=== PATIENT | male | born 1980 | race Two or more races ===

== ENCOUNTER 2020-05-08 16:12 | Inpatient (IN) | payer OTHER ==
[2020-05-08] MEDS ORDERED: OLANZapine IM 10 MG VIAL. IM PRN (17:45)
[2020-05-08 17:46] VITALS: BP 132/78
[2020-05-08] MEDS ORDERED: levETIRAcetam 500 MG TABLET PO SCH (18:00)
[2020-05-08 18:32] LABS: BASO # 0.1 x10^3/uL (0.0-0.2); BASO % 1 % (0-3); EOS % 0 % (0-3); HEMATOCRIT 36.4 % (39.0-53.0); HEMOGLOBIN 12.2 g/dL (13.0-17.5); LYMPH # 1.2 x10^3/uL (1.0-4.8); LYMPH % 10 % (24-48); MEAN CORPUSCULAR HEMOGLOBIN 31 pg (25-35); MEAN CORPUSCULAR HGB CONC 33 g/dL (31-37); MEAN CORPUSCULAR VOLUME 92 fL (79-100); MONO % 9 % (0-9); NEUT # 9.2 x10^3/uL (1.8-7.7); NEUT % 80 % (31-73); PLATELET COUNT 164 x10^3/uL (140-400); RED BLOOD COUNT 3.97 x10^6/uL (4.30-5.70); RED CELL DISTRIBUTION WIDTH 13.5 % (11.5-14.5); WHITE BLOOD COUNT 11.5 x10^3/uL (4.0-11.0)
[2020-05-08 19:00] VITALS: BP 105/55
[2020-05-08 19:05] LABS: CALCIUM 7.5 mg/dL (8.5-10.1); CREATININE 1.3 mg/dL (0.7-1.3); GFR 61.1; POTASSIUM 3.4 mmol/L (3.5-5.1)
--- NOTE | 2020-05-08 20:00 | NUR ---
patient sedated, waiting to give Keppra, as not encourage agitation.
--- NOTE | 2020-05-08 20:18 | NUR ---
THis RN gave report to Ms Meghan Dozier at [facility].
--- NOTE | 2020-05-08 20:31 | NUR ---
Pt became verbally, physically aggressive toward staff members. Pt confused alert only to himself, and he knew he was in a hospital, knew intermittently. Pt unsteady on his own feet. Sarita rodriguez called by this RN at 1730. Pt stated he wanted to go back to the pin. Wanted to leave here, attempting to leave, pulling off telemonitor and oxygen. Told LOCKER OPERATOR Leela to get out of the way or he was calling the marshal. Homicidal, wanted to hang himself and the LOCKER OPERATOR with a noose. Told Marco Antonio with security it was ok for him to taze and shoot him. Shoved one of the staff into the wall. Dr. Singh returned a page, and received orders for patient. Pt stated in front of 2 security officers, Vanessa Nursing accounts receivable supervisor, and this RN, "I want a noose to hang myself with!" Zyprexa was given in his left leg IM as ordered. Pt was on 1:1 until shift change. Pt passed bedside [place] given by this RN. Pt given food. Pt sleeping after eating dinner.
[2020-05-08] MEDS: levETIRAcetam 500 MG in IV DEXTROSE 5% 100ML 100 ML IV SCH (21:00)
--- NOTE | 2020-05-08 22:50 | NUR ---
Patient awakens, climbs out of bed over the side rail, 'need to pee', assisted x 1 to bathroom, gait weaving, got back into bed, agitated, refuses to allow the deputy sheriff bailiff to be reconnect,also refusing the O2 monitor, 'tired of this , f------ s--- why am I here?' he is informed that he had a seizure, 'no I didn't...I don't have seizures...my face, my whole body hurts..what happened to me?"He is informed that since he had a seizure, he may have fallen, or just the body ache from his seizure, again,he denies that he has seizures. Monitoring
--- NOTE | 2020-05-08 23:00 | NUR ---
Patient agitated, refusing his monitor, oxygen, and any medications (martha), "I don't have seizures...I don't neet any of that stuff"
--- NOTE | 2020-05-09 05:00 | NUR ---
Patient remains restless, vital signs not obtained, as is refusing.
--- NOTE | 2020-05-09 06:45 | NUR ---
Spoke with Stacia Tamez, Director's Software Engineering Manager, at [facility], patient's history here since admit to [facility], Stacia reported that there is speculation that the patient may have had 'some bad K-2, as we had another person have seizures last night due to K-2" informed per Stacia to obtain copy of his Code Christina episode, so she would have for their records, Aliyah, patient's day rn notified.
[2020-05-09 07:00] VITALS: BP 133/71
[2020-05-09] MEDS: levETIRAcetam 500 MG in IV DEXTROSE 5% 100ML 100 ML IV SCH (10:01)
[2020-05-09 11:24] VITALS: BP 136/88
--- NOTE | 2020-05-09 11:26 | HP ---
ADMIT DATE: 05/08/2020 HISTORY OF PRESENT ILLNESS: The patient is a 39-year-old patient who was brought by EMS from [facility] for 2 seizures. EMS reported that they were called for seizure, which had stopped, but the patient started seizing soon after. The seizure lasted about 10 minutes, was actually seizing on arrival, was given 5 mg intramuscular Versed with resolution of seizure. The patient was combative in the ambulance after seizure. Per EMS, the seizure was generalized tonic-clonic without any focal features. The patient was found on a cement floor, but is uncertain. The patient felt initial seizing activity, was not witnessed per documentation provided to the [facility]. The patient has a history of dental caries, but no other medical condition and he is not on any medication. The patient was extensively investigated in the Emergency Room and had a CT scan of the head without contrast, which showed that there is no evidence of acute intraparenchymal hemorrhage or infarct. No abnormal parenchymal density or mass. The ventricles are within normal limits. Basilar cisterns are patent. No pathological extraaxial fluid collection or mass. The orbital contents are unremarkable and visualized paranasal sinuses and mastoid air cells are clear. CT scan of the cervical spine also showed no acute traumatic finding. CT scan of the chest with PE protocol showed no evidence of pulmonary embolism or other acute cardiopulmonary process and CT scan of the abdomen was unremarkable. The patient was transferred to [facility] for further evaluation and to consult the neurologist. PAST MEDICAL HISTORY: Unremarkable. PAST SURGICAL HISTORY:: Unremarkable. ALLERGIES: He has no known drug allergy. MEDICATIONS: He was not on any medication. PHYSICAL EXAMINATION: GENERAL: On arrival to the Emergency Room, the patient was actively seizing and therefore he was loaded with Keppra and was given a liter of normal saline and was transferred to [facility]. On examining him, he looked well and was clearly in no apparent respiratory distress. No pallor, jaundice, cyanosis or thyromegaly. No jugular venous distension. No limb edema. VITAL SIGNS: His heart rate on arrival was 115, blood pressure 108/54, temperature was 99, respiratory rate was 12 and oxygen saturation was 99% on 6 liters of oxygen. HEAD, EYES, EARS, NOSE AND THROAT: Showed normocephalic, atraumatic. NECK: Supple. HEART: Showed normal first and second heart sounds. No gallop, rub or murmur. CHEST: Clear to auscultation. No crepitation or rhonchi. ABDOMEN: Scaphoid, soft, nontender. NEUROLOGIC: He was combative, but moves all extremities spontaneously. LABORATORY DATA: His lab work while in the Emergency Room showed a serum sodium 150, potassium 3.6, chloride 114, bicarbonate 26, anion gap of 10, BUN 14, creatinine 1.7, estimated GFR was 54 mL per minute. His glucose 151, lactic acid was 2.7, calcium was 8.2, phosphorus was 2.8, and magnesium was 2.2. Total bilirubin, AST, ALT, alkaline phosphatase were normal. CK was 1300. Troponin I was 0.056. Total protein was 6.2, albumin 3.3. Urinalysis was essentially unremarkable except for proteinuria. Toxic screen was positive only for benzodiazepine. As I stated earlier, his CT scan of the head and cervical spine were unremarkable and CT scan of the chest, abdomen and pelvis were also unremarkable. ASSESSMENT AND PLAN: The patient was transferred to [facility] with new onset of seizures, lactic acidosis, hypernatremia and we did start him on Keppra 500 mg twice a day, IV fluid and consulted the neurologist for further evaluation and treatment. LENORA JOSHUA MD DR: JUSTYN/braxton JOB#: [id number] / [id number]
--- NOTE | 2020-05-09 12:06 | NUR ---
SW following for discharge planning. Spoke with RN and reviewed chart. PAT referral. SW spoke with Seferino who met with this pt. Pt denies SI/HI per Seferino. Pt to discharge back to [facility], , ext 16. Pt's CM is Rhys Wright. Clinicals ready to be sent with pt. Pt provided with script for Diana. No further SW needs at this time. Addendum: 05/09/20 at 1327 by VAMSI OG Spoke with Rhys Wright who will pick this pt up at 1400 for discharge.
[2020-05-09] MEDS ORDERED: LEVE500T56 PO (12:58)
--- NOTE | 2020-05-09 13:12 | PN ---
DATE: 05/09/2020 SUBJECTIVE: The patient is resting, slightly propped up in bed, in no apparent distress, awake, alert, refusing any medical treatment. He wanted to leave against medical advice; however, was not sure as to where he should go. When he arrived here, he initially was very confused, alert, oriented to himself. He was apparently unsteady on his feet and a code dia was called in at 1730 yesterday. He stated he wants to go back to the ____ wanted to leave from here, attempting to leave pulling off tele monitor and oxygen. He was homicidal, wanted to hang himself and the AUDIO PRODUCTION ENGINEER told to the security that it was okay for him to shiv and shoot him. Stubbed of the staff into wall and we did actually start him on Zyprexa. He apparently has had no further episodes of seizures since he arrived here. PHYSICAL EXAMINATION: GENERAL: When I examined him this morning, he looked well and was clearly in no apparent respiratory distress. No pallor, jaundice, cyanosis or thyromegaly. No jugular venous distension. No limb edema. VITAL SIGNS: His heart rate was 96, blood pressure was 133/71, temperature was 96.5, respiratory rate was 20, and oxygen saturation was 91% on room air. NEUROLOGIC: The patient is awake, alert, responding appropriately. All cranial nerves are intact. He moves extremities without difficulty. LABORATORY DATA: His lab work showed a serum sodium of 145, potassium 3.4, chloride 112, bicarbonate 24, anion gap of 9, BUN 9, creatinine 1.3, estimated GFR was 61 mL per minute. His glucose was 110, calcium was 7.5, CK was high at 220,100. His white cell count was 11,500, hemoglobin 12, hematocrit 36, MCV 92, and platelet count of 164,000 with normal manual differential. IMPRESSION: In summary, this is a 39-year-old male patient who was brought from [facility] to the intermediate house to [facility], new onset of seizures. He was loaded with Keppra there and was transferred here with new onset of seizures, rhabdomyolysis, hypernatremia as well as lactic acidosis sounds. His lab work has improved. He was continued on Keppra. We did consult Dr. Rai. However, the patient is refusing all medical care and would like to leave against medical advice after I have spoken with the transition social worker to see where he would be discharged as he is homicidal and suicidal and he has obviously active medical problems that need to be attended to and including rhabdomyolysis as his CK has and increased from bilirubin is 13 from 3409-1443. However, his creatinine came down to 1.3 from 1.7. Serum sodium came down from 151-145. LENORA JOSHUA MD DR: JUSTYN/braxton JOB#: [id number] / [id number]
--- NOTE | 2020-05-09 13:35 | PDOC2 ---
NEUROLOGY CONSULT Date of Service DOS: DATE: 05/09/20 TIME: 13:34 Reason for Consult Reason for Consult: New seizure Referring Physician Referring Physician: Dr. Singh Source Source: Chart review, Patient History of Present Illness History of Present Illness The patient is a 39-year-old right-handed male brought in from the [facility], which I understand is a alf house, to the [facility] emergency department. He had a seizure lasting about 10 minutes, a second seizure upon arrival to the emergency department. He was given 5 mg of Versed. Patient was combative afterwards. 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 Past Medical History Cardiovascular: No pertinent hx Pulmonary: No pertinent hx Past Surgical History Past Surgical History: No pertinent history Family History Family History: Other (Negative for seizures) Social History Social History Is in a alf house, no alcohol, tobacco, street drugs Current Medications Current Medications Current Medications Olanzapine (ZyPREXA IM) 2.5 mg PRN Q4HRS PRN IM ANXIETY / AGITATION Last administered on 05/08/20at 17:40; Start 05/08/20 at 17:45 Levetiracetam (Keppra) 500 mg BID PO ; Start 05/08/20 at 18:00; Status Cancel Levetiracetam 500 mg/Dextrose 105 ml @ 420 mls/hr Q12HR IV Last administered on 05/09/20at 10:01; Start 05/08/20 at 21:00 Allergies Allergies: Coded Allergies: No Known Drug Allergies (Unverified , 05/08/20) ROS Review of System Negative for fever, chills, weight loss, shortness of breath, chest pain, indigestion, hematochezia, melena, and dysuria. Full 14-point review of systems is negative. Physical Exam Physical Examination General: Well-developed, well-nourished male in no acute distress HEENT: Normocephalic andatraumatic. Temporal arteriespulsatile and nontender. Neck: Supple without bruit, no meningismus Musculoskeletal: Stability:see neurologic. Gait exam:see neurologic. Tone:see neurologic.Strength:see neurologic. Neurological: Mental Status:intact, orientation, memory, attention span/concentration, language, fund of knowledge normal. Cranial Nerves:Pupils equal and reactive to light, extraocular movements areintact, visual chaves are full to confrontation. Facial sensation is normal. There is no facial asymmetry. Vestibulo-ocular reflex is intact. Palate elevates and tongue protrudes in midline. All other cranial related problems are negative except as mentioned before.Reflexes:2+ and symmetric with flexor plantar responses. Motor:5/5 strength with normal tone and bulk. Coordination:Finger-nose finger and wqln-[id number] testing are normal. Rapid alternating movements and fine finger movements are intact. Gait:Normal, including tandem. Sensory:Normal pinprick, vibration, light touch, proprioception. Vitals VITALS Vital Signs Date Time Temp Pulse Resp B/P (MAP) Pulse Ox O2 Delivery O2 Flow Rate FiO2 05/09/20 11:24 97.0 108 20 136/88 (104) 91 Room Air 97.0 05/08/20 20:00 2.0 Labs Labs Laboratory studies reviewed from [facility]: Sodium 150, Glucose 151, creatinine 1.7, lactic acid 2.7, calcium 8.2, bilirubin 0.1, CPK 1301, urine drug screen positive for benzodiazepines only Laboratory Tests Test 05/08/20 18:20 White Blood Count 11.5 x10^3/uL (4.0-11.0) Red Blood Count 3.97 x10^6/uL (4.30-5.70) Hemoglobin 12.2 g/dL (13.0-17.5) Hematocrit 36.4 % (39.0-53.0) Mean Corpuscular Volume 92 fL (79-100) Mean Corpuscular Hemoglobin 31 pg (25-35) Mean Corpuscular Hemoglobin Concent 33 g/dL (31-37) Red Cell Distribution Width 13.5 % (11.5-14.5) Platelet Count 164 x10^3/uL (140-400) Neutrophils (%) (Auto) 80 % (31-73) Lymphocytes (%) (Auto) 10 % (24-48) Monocytes (%) (Auto) 9 % (0-9) Eosinophils (%) (Auto) 0 % (0-3) Basophils (%) (Auto) 1 % (0-3) Neutrophils # (Auto) 9.2 x10^3/uL (1.8-7.7) Lymphocytes # (Auto) 1.2 x10^3/uL (1.0-4.8) Monocytes # (Auto) 1.0 x10^3/uL (0.0-1.1) Eosinophils # (Auto) 0.0 x10^3/uL (0.0-0.7) Basophils # (Auto) 0.1 x10^3/uL (0.0-0.2) Sodium Level 145 mmol/L (136-145) Potassium Level 3.4 mmol/L (3.5-5.1) Chloride Level 112 mmol/L (98-107) Carbon Dioxide Level 24 mmol/L (21-32) Anion Gap 9 (6-14) Blood Urea Nitrogen 9 mg/dL (8-26) Creatinine 1.3 mg/dL (0.7-1.3) Estimated GFR (Cockcroft-Gault) 61.1 Glucose Level 110 mg/dL (70-99) Calcium Level 7.5 mg/dL (8.5-10.1) Creatine Kinase 2175 U/L (39-308) Laboratory Tests Test 05/08/20 18:20 White Blood Count 11.5 x10^3/uL (4.0-11.0) Red Blood Count 3.97 x10^6/uL (4.30-5.70) Hemoglobin 12.2 g/dL (13.0-17.5) Hematocrit 36.4 % (39.0-53.0) Mean Corpuscular Volume 92 fL (79-100) Mean Corpuscular Hemoglobin 31 pg (25-35) Mean Corpuscular Hemoglobin Concent 33 g/dL (31-37) Red Cell Distribution Width 13.5 % (11.5-14.5) Platelet Count 164 x10^3/uL (140-400) Neutrophils (%) (Auto) 80 % (31-73) Lymphocytes (%) (Auto) 10 % (24-48) Monocytes (%) (Auto) 9 % (0-9) Eosinophils (%) (Auto) 0 % (0-3) Basophils (%) (Auto) 1 % (0-3) Neutrophils # (Auto) 9.2 x10^3/uL (1.8-7.7) Lymphocytes # (Auto) 1.2 x10^3/uL (1.0-4.8) Monocytes # (Auto) 1.0 x10^3/uL (0.0-1.1) Eosinophils # (Auto) 0.0 x10^3/uL (0.0-0.7) Basophils # (Auto) 0.1 x10^3/uL (0.0-0.2) Sodium Level 145 mmol/L (136-145) Potassium Level 3.4 mmol/L (3.5-5.1) Chloride Level 112 mmol/L (98-107) Carbon Dioxide Level 24 mmol/L (21-32) Anion Gap 9 (6-14) Blood Urea Nitrogen 9 mg/dL (8-26) Creatinine 1.3 mg/dL (0.7-1.3) Estimated GFR (Cockcroft-Gault) 61.1 Glucose Level 110 mg/dL (70-99) Calcium Level 7.5 mg/dL (8.5-10.1) Creatine Kinase 2175 U/L (39-308) Images Images [facility] radiology results: CT Head without IV contrast INDICATION: Reason: seizure, fall / Spl. Instructions: / History: TECHNIQUE: Multi-detector row CT images were obtained of the head without the use of IV contrast. All CT scans performed at this facility utilize dose optimization techniques as appropriate to the exam, including the following: Automated exposure control and adjustment of the mA and/or KV according to patient size (this includes techniques or standardized protocols for targeted exams where dose is indication/reason for exam). COMPARISON: None FINDINGS: BRAIN PARENCHYMA: No evidence of acute intraparenchymal hemorrhage or infarct. No abnormal parenchymal density or mass. VENTRICLES & EXTRA-AXIAL SPACES: Ventricles are within normal limits. Basilar cisterns are patent. No pathologic extra-axial fluid collection or mass. ORBITS: Orbital contents are unremarkable. SINUSES: Visualized paranasal sinuses and mastoid air cells are clear. OSSEOUS & SOFT TISSUES: Calvarium and skull base are intact. IMPRESSION: Normal CT of the head without contrast. EXAM: CT Cervical Spine without IV contrast INDICATION: Reason: seizure, fall / Spl. Instructions: / History: TECHNIQUE: Multi-detector row CT images were obtained through the cervical spine without the use of IV contrast. Post-processing sagittal and coronal reconstructed images were obtained for interpretation. All CT scans performed at this facility utilize dose optimization techniques as appropriate to the exam, including the following: Automated exposure control and adjustment of the mA and/or KV according to patient size (this includes techniques or standardized protocols for targeted exams where dose is indication/reason for exam). COMPARISON: None FINDINGS: CRANIOCERVICAL JUNCTION: Unremarkable. ALIGNMENT: Alignment is within normal limits. OSSEOUS: No evidence of fracture or bone destruction. DISC SPACES: Mild left-sided C3-C4 uncovertebral hypertrophy results in mild left foraminal narrowing FACET JOINTS: Unremarkable. SPINAL CANAL: Unremarkable. NEUROFORAMINA: Unremarkable. SOFT TISSUES: Unremarkable. IMPRESSION: Minimal degenerative changes in the cervical spine. No acute traumatic findings. EXAM: CT Pulmonary Angiogram INDICATION: Reason: seizure, fall / Spl. Instructions: / History: TECHNIQUE: Multi-detector row images were acquired from the thoracic inlet through the upper abdomen with the use of IV contrast. Sagittal and coronal images were acquired from the transaxial data. MIP images of the pulmonary arteries were obtained. All CT scans performed at this facility utilize dose optimization techniques as appropriate to the exam, including the following: Automated exposure control and adjustment of the mA and/or KV according to patient size (this includes techniques or standardized protocols for targeted exams where dose is indication/reason for exam). IV CONTRAST: Administered COMPARISON: None FINDINGS: PULMONARY ARTERIES: No pulmonary emboli are identified. CARDIOVASCULAR: Unremarkable Aorta is normal caliber. MEDIASTINUM & JORGE ALBERTO: No adenopathy or masses. LUNGS: Mild dependent atelectatic changes in the lower lobes. No pulmonary infiltrate, nodule, or other focal abnormality otherwise appreciated. PLEURAL SPACE: No pleural effusions or pneumothorax. OSSEOUS & SOFT TISSUE: Unremarkable ABDOMEN: The visualized portions of the upper abdomen are unremarkable. IMPRESSION: Normal CT pulmonary angiogram. No evidence of pulmonary emboli or other acute cardiopulmonary process in the chest. EXAM: CT Abdomen and Pelvis with IV contrast INDICATION: Reason: seizure, fall / Spl. Instructions: / History: TECHNIQUE: Multi-detector row CT images were acquired from the lung bases through the abdomen and pelvis with the use of IV contrast. Sagittal and coronal images were acquired from the transaxial data. All CT scans performed at this facility utilize dose optimization techniques as appropriate to the exam, including the following: Automated exposure control and adjustment of the mA and/or KV according to patient size (this includes techniques or standardized protocols for targeted exams where dose is indication/reason for exam). IV CONTRAST: Administered ORAL CONTRAST: Not administered COMPARISON: CT pulmonary angiogram same day FINDINGS: LOWER CHEST: Unremarkable LIVER: Unremarkable BILIARY SYSTEM: Gallbladder is unremarkable. Bile ducts are not dilated. PANCREAS: Unremarkable SPLEEN: Unremarkable ADRENALS: Unremarkable KIDNEYS & URETERS: Unremarkable BLADDER: Unremarkable REPRODUCTIVE ORGANS: Unremarkable GASTROINTESTINAL: The stomach, small bowel, and colon are unremarkable. The appendix is normal. MESENTERY/PERITONEUM/RETROPERITONEUM: Unremarkable VASCULAR: Unremarkable LYMPH NODES: No adenopathy OSSEOUS & SOFT TISSUES: Unremarkable IMPRESSION: Unremarkable CT of the abdomen and pelvis. No acute traumatic findings noted. Assessment/Plan Assessment/Plan Impression: New seizure, no obvious risk factor except for prior head injury Recommendations: Levetiracetam Electroencephalogram Brain MRI In between my seeing the patient and writing this note, I understand the patient is refusing all testing and wants to leave AGAINST MEDICAL ADVICE. Thank you for letting me help with the patient's care. HAMILTON LEYVA MD May 09, 2020 13:35
--- NOTE | 2020-05-09 14:13 | NUR ---
Pt left unit at approx 1413 by wheelchair via transportation. Pt's IV removed without complication, VSS. Discharge paperwork sent in pt packet, including medication script.
== END 2020-05-09 14:16 | disposition home or self-care (01) | DRG 101 ==
LOC: 6 SOUTH 17:16
PROVIDERS: ADMIT Internal Medicine; ATTEND Internal Medicine
DX: G40.89 Other seizures (principal); E87.0 Hyperosmolality and hypernatremia; M62.82 Rhabdomyolysis; E87.2 Acidosis; R26.81 Unsteadiness on feet; Z87.828 Personal history of other (healed) physical injury and trauma
CPT/HCPCS: 36415; 80048; 82550; 85025; J1953; J3490; J7060; G0378